=== PATIENT | female | born 1970 | race Caucasian/White ===

== ENCOUNTER → 2016-11-22 | Outpatient (CLI) | payer OTHER | LOC: MAMO 11-18 09:30 → US 11-18 10:30 → MAMO 10:00 | DX: N63 Unspecified lump in breast (principal) | CPT/HCPCS: 76641-RT; G0204 ==

== ENCOUNTER 2017-01-07 15:54 | Emergency (ER) | payer OTHER | END 2017-01-07 18:35 | disposition home or self-care (01) | LOC: ER1 15:54 | DX: S00.93XA Contusion of unspecified part of head, initial encounter (principal); S80.811A Abrasion, right lower leg, initial encounter; F17.210 Nicotine dependence, cigarettes, uncomplicated; E11.9 Type 2 diabetes mellitus without complications; Z79.84 Long term (current) use of oral hypoglycemic drugs; Z90.49 Acquired absence of other specified parts of digestive tract; Z95.0 Presence of cardiac pacemaker; Z79.899 Other long term (current) drug therapy; W06.XXXA Fall from bed, initial encounter; Y93.9 Activity, unspecified; Y92.009 Unspecified place in unspecified non-institutional (private) residence as the place of occurrence of the external cause | CPT/HCPCS: 70450; 73590; 90471; 90714; 99284 ==

== ENCOUNTER → 2017-02-21 | Outpatient (CLI) | payer OTHER ==
[2017-02-21 11:37] LABS: BUN/CREATININE RATIO 9 (0-10)
== END ==
LOC: LAB 10:27
PROVIDERS: Family Medicine
DX: E11.9 Type 2 diabetes mellitus without complications (principal); E78.2 Mixed hyperlipidemia
CPT/HCPCS: 36415; 80053; 80061; 83036

== ENCOUNTER 2017-03-04 22:43 | Emergency (ER) | payer OTHER | END 2017-03-05 02:00 | disposition left against medical advice (07) | LOC: ER1 22:43 | DX: Z53.21 Procedure and treatment not carried out due to patient leaving prior to being seen by health care provider (principal) ==

== ENCOUNTER 2017-03-05 16:26 | Emergency (ER) | payer OTHER ==
[2017-03-05 19:47] LABS: HEMOGLOBIN 13.5 gm/dl (12.3-15.3); RED BLOOD COUNT 4.58 M/UL (4.00-5.10); WHITE BLOOD COUNT 9.3 K/UL (4.5-11.0)
[2017-03-05 20:54] LABS: BUN/CREATININE RATIO 13 (0-10)
== END 2017-03-05 22:35 | disposition home or self-care (01) ==
LOC: ER1 16:26
PROVIDERS: Physician Assistant
DX: K62.5 Hemorrhage of anus and rectum (principal); R10.817 Generalized abdominal tenderness; N93.9 Abnormal uterine and vaginal bleeding, unspecified; K21.9 Gastro-esophageal reflux disease without esophagitis; E11.9 Type 2 diabetes mellitus without complications; F41.9 Anxiety disorder, unspecified; I10 Essential (primary) hypertension; E78.00 Pure hypercholesterolemia, unspecified; Z79.84 Long term (current) use of oral hypoglycemic drugs; Z88.0 Allergy status to penicillin; Z88.5 Allergy status to narcotic agent; Z88.1 Allergy status to other antibiotic agents; Z88.2 Allergy status to sulfonamides; Z88.8 Allergy status to other drugs, medicaments and biological substances
CPT/HCPCS: 36415; 51701; 80053; 81001; 82272; 83690; 85025; 87086; 87210; 96360; 99284; J7050; Q9962

== ENCOUNTER → 2017-03-09 | Outpatient (CLI) | payer OTHER ==
[2017-03-09 10:43] LABS: BUN/CREATININE RATIO 16 (0-10)
== END ==
LOC: LAB 09:02
PROVIDERS: Family Medicine
DX: E11.9 Type 2 diabetes mellitus without complications (principal); E78.2 Mixed hyperlipidemia
CPT/HCPCS: 36415; 80053; 80061

== ENCOUNTER → 2020-10-05 | Outpatient (CLI) | payer OTHER ==
[~2020-10-05] MED LIST: ANTIVERT 12.512.5 MG PO; DIFLUCAN150 MG PO; PROAIR HFA8.5 GM INH; ZITHROMAX250 MG PO
[2020-10-05 09:14] LABS: BUN/CREATININE RATIO 14 (0-10)
== END ==
LOC: LAB 08:11
PROVIDERS: Family Medicine
DX: E55.9 Vitamin D deficiency, unspecified (principal); E78.2 Mixed hyperlipidemia; I10 Essential (primary) hypertension; E11.9 Type 2 diabetes mellitus without complications; Z79.4 Long term (current) use of insulin
CPT/HCPCS: 36415; 80053; 80061; 83036; 83735

== ENCOUNTER → 2020-11-24 | Outpatient (CLI) | payer OTHER ==
[2020-11-25 11:15] LABS: ALPHA-1-ANTITRYPSIN, SERUM 165 mg/dL (101-187)
[2020-11-25 12:15] LABS: HBSAG SCREEN Negative (Negative); HEP A AB, IGM Negative (Negative); HEP B CORE AB, IGM Negative (Negative); HEP C VIRUS AB <0.1 (0.0-0.9)
[2020-11-25 13:15] LABS: THYROXINE (T4) 7.7 ug/dL (4.5-12.0); TRIIODOTHYRONINE (T3) 120 ng/dL (71-180)
[2020-11-25 15:10] LABS: MITOCHONDRIAL (M2) ANTIBODY <20.0 Units (0.0-20.0)
== END ==
LOC: LAB 15:28
PROVIDERS: Family Medicine
DX: M54.2 Cervicalgia (principal); R74.8 Abnormal levels of other serum enzymes; M47.812 Spondylosis without myelopathy or radiculopathy, cervical region
CPT/HCPCS: 36415; 72050; 80074; 80076; 82103; 82728; 83540; 83550; 84436; 84443; 84480; 86038

== ENCOUNTER 2021-01-17 17:08 | Emergency (ER) | payer OTHER ==
[~2021-01-17 17:08] MED LIST changes: -ANTIVERT 12.512.5 MG PO
[2021-01-17 17:36] LABS: HEMOGLOBIN 15.8 gm/dl (12.3-15.3); RED BLOOD COUNT 5.31 M/UL (4.00-5.10)
[2021-01-17 18:15] LABS: BUN/CREATININE RATIO 12 (0-10)
[2021-01-17] MEDS ORDERED: ANTIVERT 12.512.5 MG PO (20:59)
== END 2021-01-17 21:32 | disposition home or self-care (01) ==
LOC: ER1 17:08
PROVIDERS: Physician Assistant Medical
DX: R42 Dizziness and giddiness (principal); E11.9 Type 2 diabetes mellitus without complications; I10 Essential (primary) hypertension; Z90.49 Acquired absence of other specified parts of digestive tract; Z90.710 Acquired absence of both cervix and uterus; Z79.899 Other long term (current) drug therapy; F17.210 Nicotine dependence, cigarettes, uncomplicated; Z88.2 Allergy status to sulfonamides; Z88.8 Allergy status to other drugs, medicaments and biological substances
CPT/HCPCS: 70450; 71045; 80053; 81001; 82550; 82553; 83874; 84484; 85025; 99285

== ENCOUNTER → 2021-02-24 | Outpatient (CLI) | payer OTHER ==
[~2021-02-24] MED LIST changes: +ANTIVERT 12.512.5 MG PO
== END ==
LOC: HEART 5 02-08 15:30
DX: R42 Dizziness and giddiness (principal); R00.2 Palpitations

== ENCOUNTER → 2021-04-15 | Outpatient (CLI) | payer OTHER | LOC: MAMO 02-15 09:00 | DX: Z12.31 Encounter for screening mammogram for malignant neoplasm of breast (principal) | CPT/HCPCS: 77063; 77067 ==

== ENCOUNTER 2021-06-22 16:52 | Emergency (ER) | payer OTHER ==
[2021-06-22 18:06] LABS: HEMOGLOBIN 14.3 gm/dl (12.3-15.3); RED BLOOD COUNT 4.81 M/UL (4.00-5.10); WHITE BLOOD COUNT 10.5 K/UL (4.5-11.0)
[2021-06-22 18:27] LABS: BUN/CREATININE RATIO 12 (0-10)
== END 2021-06-22 19:26 | disposition home or self-care (01) ==
LOC: ER1 16:52
PROVIDERS: Nurse Practitioner
DX: E11.649 Type 2 diabetes mellitus with hypoglycemia without coma (principal); F17.210 Nicotine dependence, cigarettes, uncomplicated; Z88.6 Allergy status to analgesic agent; Z88.1 Allergy status to other antibiotic agents; Z79.4 Long term (current) use of insulin
CPT/HCPCS: 80053; 82962; 85025; 99284

== ENCOUNTER → 2021-09-29 | Outpatient (CLI) | payer OTHER | LOC: EXRD 13:00 | DX: J20.9 Acute bronchitis, unspecified (principal) | CPT/HCPCS: 71046 ==

== ENCOUNTER → 2022-01-27 | Outpatient (CLI) | payer OTHER | LOC: RAD 12:33 | DX: S99.922A Unspecified injury of left foot, initial encounter (principal); S82.62XA Displaced fracture of lateral malleolus of left fibula, initial encounter for closed fracture | CPT/HCPCS: 73600; 73630 ==

== ENCOUNTER → 2022-02-22 | Outpatient (CLI) | payer OTHER | LOC: KOH-I 14:36 | DX: S82.402A Unspecified fracture of shaft of left fibula, initial encounter for closed fracture (principal); M19.072 Primary osteoarthritis, left ankle and foot | CPT/HCPCS: 73610 ==

== ENCOUNTER 2022-03-03 22:53 | Emergency (ER) | payer OTHER | END 2022-03-04 00:15 | disposition home or self-care (01) | LOC: ER1 22:53 | DX: S93.402A Sprain of unspecified ligament of left ankle, initial encounter (principal); E11.40 Type 2 diabetes mellitus with diabetic neuropathy, unspecified; F17.210 Nicotine dependence, cigarettes, uncomplicated; Z88.2 Allergy status to sulfonamides; Z88.5 Allergy status to narcotic agent; Z79.4 Long term (current) use of insulin; Z88.6 Allergy status to analgesic agent; Z88.1 Allergy status to other antibiotic agents; X50.9XXA Other and unspecified overexertion or strenuous movements or postures, initial encounter; Y92.009 Unspecified place in unspecified non-institutional (private) residence as the place of occurrence of the external cause | CPT/HCPCS: 73610; 73630; 99283 ==

== ENCOUNTER → 2022-04-12 | Outpatient (CLI) | payer OTHER | LOC: CT 14:40 | DX: S86.012A Strain of left Achilles tendon, initial encounter (principal); S86.312A Strain of muscle(s) and tendon(s) of peroneal muscle group at lower leg level, left leg, initial encounter | CPT/HCPCS: 73700 ==

== ENCOUNTER → 2022-05-10 | Outpatient (CLI) | payer OTHER | LOC: MAMO 13:25 | DX: Z12.31 Encounter for screening mammogram for malignant neoplasm of breast (principal) | CPT/HCPCS: 77063; 77067 ==

== ENCOUNTER 2022-06-20 15:18 | Observation (INO) | payer OTHER ==
[~2022-06-20] VITALS: Ht 162.6 cm; Wt 101.6 kg
[2022-06-20 18:52] LABS: HEMOGLOBIN 15.4 gm/dl (12.3-15.3); RED BLOOD COUNT 5.24 M/UL (4.00-5.10); WHITE BLOOD COUNT 16.5 K/UL (4.5-11.0)
[2022-06-20 19:16] LABS: BUN/CREATININE RATIO 12 (0-10)
[2022-06-21] MEDS ORDERED: GABAPENTIN800 MG PO (12:28)
[2022-06-21] MEDS ORDERED: JARDIANCE10 MG PO (12:29)
[2022-06-21] MEDS ORDERED: LORATADINE10 MG PO (12:30)
[2022-06-21] MEDS ORDERED: TOPIRAMATE50 MG PO ×2 (12:31)
[2022-06-21] MEDS ORDERED: POTASSIUM CHLO10 ME1 PO (12:32)
[2022-06-21] MEDS ORDERED: ASPIRIN EC81 MG PO (12:32)
[2022-06-21] MEDS ORDERED: VITAMIN D325 MCG PO (12:33)
[2022-06-21] MEDS ORDERED: CYCLOBENZAPRINE5 MG PO (12:34)
[2022-06-21] MEDS ORDERED: CITALOPRAM HBR20 MG PO (12:35)
[2022-06-21] MEDS ORDERED: TOUJEO MAX300 UNIT/1 SQ (12:36)
[2022-06-21] MEDS ORDERED: FUROSEMIDE20 MG PO (12:38)
[2022-06-21 15:16] LABS: RED BLOOD COUNT 4.94 M/UL (4.00-5.10)
[2022-06-21 15:17] LABS: WHITE BLOOD COUNT 8.3 K/UL (4.5-11.0)
[2022-06-21 16:09] LABS: BUN/CREATININE RATIO 8 (0-10)
[2022-06-21] MEDS ORDERED: DIPHENHYDRAMINE25 M2 PO (16:17)
[2022-06-21] MEDS ORDERED: ONDANSETRON ODT4 MG PO (16:19)
[2022-06-21] MEDS ORDERED: UBRELVY100 MG PO (16:20)
[2022-06-21] MEDS ORDERED: AMITRIPTYLINE H10 MG PO (16:21)
[2022-06-21] MEDS ORDERED: MIRALAX 119 GR119 GM PO (16:22)
[2022-06-21] MEDS ORDERED: GLUCOSE4 GM PO (16:24)
[2022-06-21] MEDS ORDERED: PROTONIX40 MG PO (16:26)
[2022-06-21] MEDS ORDERED: PRAMIPEXOLE D0.25 MG PO (16:26)
[2022-06-21] MEDS ORDERED: LISINOPRIL2.5 MG PO (16:27)
[2022-06-21] MEDS ORDERED: ATORVASTATIN CA20 MG PO (16:28)
[2022-06-21] MEDS ORDERED: DOXYCYCLINE HY100 M2 PO (19:12)
--- NOTE | 2022-06-21 19:30 | NUR ---
PATIENT BEING D/C'D HOME. PATIENT STATED THAT SHE DOES NOT HAVE A RIDE HOME AND WANTED A CAB TO BE CALLED TO COME GET HER. NOTIFIED LACE MACHINE OPERATOR OF THE NEED FOR A CAB. ATTEMPTED TO CALL [employer] MULTIPLE TIMES, BUT NO ANSWER WAS OBTAINED. PATIENT CALLED FAMILY MEMBER BACK AND FAMILY MEMBER WAS ABLE TO COME GET PATIENT. PATIENT WAS WALKED DOWN AND DISCHARGED HOME. STABLE AT THE TIME OF DISCHARGE. IV WAS REMOVED BEFORE DISCHARGE, EDUCATION WAS GIVEN, AND POTASSIUM 40 MEQ PO WAS ADMINISTERED BEFOREHAND.
== END 2022-06-21 20:40 | disposition home or self-care (01) ==
LOC: ER1 15:18 → CDU 06-21 00:20 → MED SURG 4 06-21 16:52
PROVIDERS: Internal Medicine; Student in an Organized Health Care Education/Training Program; ADMIT Internal Medicine
DX: E11.649 Type 2 diabetes mellitus with hypoglycemia without coma (principal); E87.6 Hypokalemia; D72.829 Elevated white blood cell count, unspecified; I10 Essential (primary) hypertension; F17.210 Nicotine dependence, cigarettes, uncomplicated; E66.9 Obesity, unspecified; Z68.38 Body mass index [BMI] 38.0-38.9, adult; Z20.822 Contact with and (suspected) exposure to COVID-19; Z96.0 Presence of urogenital implants; Z88.0 Allergy status to penicillin; Z88.1 Allergy status to other antibiotic agents; Z88.8 Allergy status to other drugs, medicaments and biological substances; Z88.6 Allergy status to analgesic agent; Z79.4 Long term (current) use of insulin; Z79.82 Long term (current) use of aspirin; Z79.899 Other long term (current) drug therapy
CPT/HCPCS: 71045; 80053; 81001; 82962; 85025; 85027; 86140; 87040; 96365; 96366; 99285; G0378; U0002